=== PATIENT | female | born 1975 | race Caucasian/White ===

== ENCOUNTER 2016-06-03 18:07 | Emergency (ER) | payer OTHER ==
[~2016-06-03] VITALS: Ht 167.6 cm; Wt 72.7 kg
[~2016-06-03 18:07] MED LIST: EFAV1TAB PO; HYDR-4003 PO; OMEP20TA86 PO; TOPI-59 PO
[2016-06-03 18:10] VITALS: BP 129/80; PULSE 75; RESP 16; O2SAT 100
[2016-06-03 18:58] LABS: BASOPHILS % (AUTO) 0.2 % (0-3); EOSINOPHILS % (AUTO) 4.3 % (0-5); MONOCYTES % (AUTO) 8.3 % (4-12); Mean Corpuscular Hemoglobin 32.5 pg (27.0-35.0); Mean Corpuscular Volume 97.1 fL (81-100); NEUTROPHILS % (AUTO) 53.6 % (40-74); Platelet Count 241 bil/L (150-400)
[2016-06-03 19:14] LABS: Magnesium 2.2 mg/dL (1.6-2.6)
--- NOTE | 2016-06-03 19:56 | ED.REPORT ---
HPI-Abd Pain F Under 42 Date of Service Jun 03, 2016 ED Provider: Duncan Berumen DO Pt is a 41 y/o female w/ a hx of HIV presenting to the ED c/o RLQ abdominal pain onset 3 days ago. She c/o associated nausea. The patient has no history of appendectomy. Her CD4 count is "good". She has no history of AIDS defining illness. She was diagnosed 5 years ago. Nursing Notes Stated Complaint: RIGHT/LOWER ABD PAIN Chief Complaint: Female Abdominal Pain Nursing Notes Reviewed: Yes Allergies: Coded Allergies: Sulfa (Sulfonamide Antibiotics) (Verified Allergy, Unknown, 06/03/16) Scheduled Efavirenz/Emtricitab/Tenofovir (Atripla) 1 Each Tablet 1 TABLET PO DAILY Topiramate (Topiramate) 25 Mg Tablet 25 MG PO BID Scheduled PRN Hydrocodone-Acetaminophen 5-325 mg (Hydrocodone-Acetaminophen 5-325 mg) 1 Each Tablet 1 TABLET PO Q6H PRN PRN For Pain Omeprazole (Omeprazole) 20 Mg Tablet.dr 20 MG PO DAILY PRN PRN For Indigestion General Time Seen by MD: 19:09 Chief Complaint Abdominal pain Hx Obtained From: Patient Arrived By: Walk-in Sudden in Onset?: No Onset Occurred: 3 days ago Symptom Duration: Since onset Progression since Onset: Constant Location: : RLQ Quality: Painful Radiation: : Does not radiate Severity: Current: Moderate Severity: Maximum: Moderate Past Medical History Past Medical History HIV - from sexual partner TMJ disease Diverticulitis Ulcer UTI Cervical cancer in remission Past Surgical History Hysterectomy Cholecystectomy Left knee Smoking History Former Smoker Social History Alcohol Use: "Social" Ambulatory Status Independent Review of Systems Constitutional: Denies: Chills, Fever Respiratory: Denies: Non-productive cough, Shortness of breath Cardiovascular: Denies: Chest pain, Dyspnea on exertion GI: Reports: Abdominal pain, Nausea, Denies: Diarrhea, Vomiting Complete sys rev & neg: except as marked. Physical Exam Initial Vital Signs Vital Signs (First) Date Time Temp Pulse Resp B/P Pulse Ox O2 Delivery O2 Flow Rate FiO2 06/03/16 18:10 36.4 75 16 129/80 100 Room Air Initial VS: Reviewed Head / Eyes: Atraumatic, Normocephalic, PERRL ENT: Mucous membranes moist, Conjunctiva normal, No scleral icterus Neck: Supple, Full range of motion Extremities: Vascular intact, Neuro intact, No swelling, No tenderness Skin: Warm, Dry, No cyanosis Neurologic: Alert, Oriented, Nonfocal Psychiatric: Mood/affect normal, Behavior normal, Normal thought content General/Constitutional: Awake, Alert, No acute distress, Well appearing, Cooperative, Not toxic appearing Respiratory / Chest: Atraumatic, Breath sounds NL, Breath sounds = bilat, No respiratory distress, No rales, No rhonchi, No wheezing, No retractions, No stridor, No chest tenderness, No chest wall deformity, No crepitus Cardiovascular: Heart rate NL, Regular rhythm, Heart sounds NL, No gallop, No murmurs, No rubs, Cap refill not delayed, Peripheral circulation NL Abdomen: Atraumatic, Soft, No guarding, No rebound, No distention, No palpable mass Tenderness/Guarding/Rebound: Positive: Tender RLQ... (Moderate) Back: Full range of motion, Painless range of motion, No CVA tenderness Interpretation & Diagnostics Lab Results Interpretation Result Diagram: 06/03/164 06/03/164 Test 06/03/16 18:44 06/03/16 20:23 White Blood Count 6.5th/mm3 (3.8-10.1) Red Blood Count 4.16mil/mm3 (3.90-5.20) Hemoglobin 13.5g/dL (12.0-15.6) Hematocrit 40.4% (35.0-46.0) Mean Corpuscular Volume 97.1fL (81-100) Mean Corpuscular Hemoglobin 32.5pg (27.0-35.0) Mean Corpuscular Hemoglobin Concent 33.4% (32.0-37.0) Red Cell Distribution Width 12.7% (12.3-15.4) Platelet Count 241bil/L (150-400) Neutrophils (%) (Auto) 53.6% (40-74) Lymphocytes (%) (Auto) 33.4% (14-46) Monocytes (%) (Auto) 8.3% (4-12) Eosinophils (%) (Auto) 4.3% (0-5) Basophils (%) (Auto) 0.2% (0-3) Sodium Level 134mEq/L (134-144) Potassium Level 4.2mEq/L (3.5-5.2) Chloride Level 99mEq/L (97-108) Carbon Dioxide Level 22mmol/L (18-29) Blood Urea Nitrogen 11mg/dL (6-20) Creatinine 0.74mg/dL (0.57-1.00) Estimat Glomerular Filtration Rate 125mL/min (>59) Glucose Level 86mg/dL (60-99) Calcium Level 9.2mg/dL (8.5-10.1) Magnesium Level 2.2mg/dL (1.6-2.6) Total Bilirubin 0.3mg/dL (0.0-1.2) Aspartate Amino Transf (AST/SGOT) 18U/L (0-50) Alanine Aminotransferase (ALT/SGPT) 13U/L (0-32) Alkaline Phosphatase 59U/L (25-150) Total Protein 7.5g/dL (6.4-8.4) Albumin 4.4g/dL (3.4-5.0) Lipase 26U/L (13-60) Hold Kauffman Top Tube Received (Received) Urine Color Straw (YELLOW) Urine Appearance Clear (CLEAR,HAZY) Urine pH 6.0 (5.0-8.0) Urine Specific [place] 1.015 (1.003-1.035) Urine Protein Negativemg/dL (NEG,TRACE) Urine Glucose (UA) Negativemg/dL (NEGATIVE) Urine Ketones 15mg/dL (NEGATIVE) Urine Occult Blood Negative (NEGATIVE) Urine Nitrite Negative (NEGATIVE) Urine Bilirubin Negative (NEGATIVE) Urine Urobilinogen Normalmg/dL (NORMAL) Urine Leukocyte Esterase Negative (NEGATIVE) Urine RBC 0-2/hpf (0-2) Urine WBC 0-5/hpf (0-5) Urine Epithelial Cells Few/hpf (NONE-MOD) Urine Crystals None seen (NONE SEEN) Urine Bacteria Few/hpf (NONE-FEW) Urine Hyaline Casts None/lpf (NONE) Urine Granular Casts None seen (NONE SEEN) Urine Waxy Casts None seen (NONE SEEN) Urine Red Blood Cell Casts None seen (NONE SEEN) Urine White Blood Cell Casts None seen (NONE SEEN) Urine Mucus None seen (None Seen) Urine Trichomonas None seen (NONE SEEN) Urine Yeast None (NONE SEEN) Urinalysis Comment None Urine Culture Reflexed Not indicated Hold Urine Received (Received) CT Abd / Pelvis Interpretation Conclusion: Normal appendix. Possible constipation pattern. Transmitted to the ED at [address] Bonifacio Blake Study type: Abdominal CT IV contrast Interpretation / Wet Read by: Interpret - Radiologist Re-Eval/Medical Decision Med Decision/Clinical Course HIV and right lower quadrant abdominal pain CT scan felt to be indicated. CT scan is reassuring. Constipation found. Laboratory work reassuring. Symptoms adequate treated. Close outpatient follow-up recommended. Re-Evaluation/Progress : Time of Eval: 00:03 Re-Evaluation/Progress Note: Pt rechecked. Informed pt of plan for treatment. Pt understands and agrees with plan for treatment. F/U and RTER warnings given. All questions addressed. Counseled Regarding: Diagnosis, Lab results, Need for follow-up, When/why to return to ED Discharge & Departure Primary Impression: Constipation Constipation type: unspecified constipation type Qualified Code: K59.00 - Constipation, unspecified Additional Impression: Abdominal pain Abdominal location: right lower quadrant Qualified Code: R10.31 - Right lower quadrant pain Disposition: Home Discharge Condition All VS Reviewed: Yes Condition: Stable Patient Instructions: Acute Abdominal Pain (ED), Constipation (ED) Additional Instructions: The CT scan today showed that you are constipated without other abnormalities. All of your labs were completely normal. Increase fiber in your diet. Drink clear liquids until you go home and then drink the mag citrate as directed. Return to the emergency department for any new or worsening symptoms. Follow-up with your doctor or the residency clinic next week. Referrals: [facility] Res[facility] Scribe Attestation Portions of this note were transcribed by Chris Nuno. I, Dr. Berumen personally performed the history, physical exam and medical decision-making; I reviewed and confirmed the accuracy of the information in the transcribed note. Signed by [place], 06/03/16 - 2014 Duncan Berumen DO Jun 03, 2016 19:56 CHRIS NUNO Jun 03, 2016 20:04
[2016-06-03] MEDS ORDERED: Iohexol 300 mg/mL 30 mL Inj PO ONE (20:50)
[2016-06-03] MEDS ORDERED: HYDROmorphone 0.5 mg/0.5 mL iSecure Syringe IVPUSH PRN (20:50)
[2016-06-03] MEDS: Ondansetron 2 mg/mL 2 mL Inj IVPUSH PRN ×3 (20:58→23:10)
[2016-06-03 23:10] VITALS: BP 110/75; PULSE 79; RESP 16; O2SAT 100
[2016-06-03 23:52] LABS: APPEARANCE,URINE CLEAR (CLEAR,HAZY); COLOR,URINE STRAW (YELLOW); OCCULT BLOOD,URINE NEGATIVE (NEGATIVE); UROBILINOGEN,URINE NORMAL (NORMAL)
[2016-06-04 00:23] VITALS: BP 110/75; PULSE 79; RESP 16; O2SAT 100
--- NOTE | 2016-06-04 08:19 | DRSVH ---
PROCEDURE: CT ABDOMEN AND PELVIS WITH CONTRAST (PNL-7102) INDICATIONS: 41-year-old female with worsening right lower quadrant pain for 3 days. TECHNIQUE: After the administration of oral and intravenous contrast, 5 mm thick sections acquired from the diap hragms to the symphysis. 5 mm thick coronal and sagittal reformats were performed. For radiation do se reduction, the following was used: automated exposure control, adjustment of mA and/or kV accordi ng to patient size. COMPARISON: [facility], CT, ABD/PELVIS W/CON (PNL), 01/02/2013, 17:14. [facility], CT, ABD/PELVIS W/CON (PNL), 06/08/2012, 9:03. FINDINGS: Preliminary interpretation rendered by [employer] [facility]. Image quality: Excellent. ABDOMEN: Lung bases: Lung bases are clear. Heart size is normal. Solid organs: Liver and spleen are normal in size. 8 mm right hepatic lobe hypodense lesion is unch anged since 2012, presumably a small cyst. Gallbladder is surgically absent . Biliary system is non -dilated. Pancreas enhances normally. No adrenal nodules. Kidneys are normal in size and enhanceme nt, without hydronephrosis. Nonobstructing 2 mm right renal stone is present. Peritoneum and bowel: Stomach, small bowel, and colon loops are normal in caliber and wall thickness . The appendix is normal in caliber on coronal image 28. No free fluid or air. Nodes and vessels: No retroperitoneal or mesenteric adenopathy. Aorta and inferior vena cava are no rmal in caliber. Retro aortic left renal vein is incidentally noted. Miscellaneous: No ventral hernias. PELVIS: Genitourinary: Bladder wall thickness is normal. Patient is status post interval hysterectomy. Ova bernard are normal in size, with 2.0 left adnexal cyst and 1.8 cm right adnexal cyst, presumably functio nal given the patient's age. Miscellaneous: No inguinal hernias or adenopathy. Bones: No suspicious bony lesions. No vertebral body compression fractures. IMPRESSION: 1. No imaging explanation for right lower quadrant abdominal pain. The appendix appears normal. 2. 2 mm nonobstructing right renal stone. 3. 8 mm presumed cyst within the right hepatic lobe is unchanged since 2012, reassuring for benign e tiology. No significant discrepancy with preliminary [employer] report. Dictated by: lCifton Langston M.D. on 06/04/2016 at 8:09 Approved by: Clifton Langston M.D. on 06/04/2016 at 8:18
== END 2016-06-04 00:24 | disposition home or self-care (01) ==
LOC: SED 18:07
DX: K59.00 Constipation, unspecified (principal); R10.31 Right lower quadrant pain; Z90.49 Acquired absence of other specified parts of digestive tract; Z87.891 Personal history of nicotine dependence; Z88.2 Allergy status to sulfonamides
CPT/HCPCS: 74177; 80053; 81000; 81002; 81025; 83690; 83735; 85025; 87491; 87591; 96374; 96375; 96376; 99285; J1170; J2405; Q9967

== ENCOUNTER 2016-06-10 10:54 | Emergency (ER) | payer OTHER ==
[~2016-06-10] VITALS: Ht 167.6 cm; Wt 160.0 kg
--- NOTE | 2016-06-10 11:10 | ED.REPORT ---
HPI- Female Date of Service Jun 10, 2016 ED Provider: Perry Eng MD Pt is a 41 y/o female w/ a hx of HIV (good CD4 count), cervical CA in remission , s/p hysterectomy, presenting to the ED c/o RLQ abdominal pain with radiation to the flank and groin onset 1 week ago. She c/o associated nausea. Pt denies vomiting, fever, chills, flank pain, constipation, diarrhea, vaginal bleeding or discharge. The patient was seen here in the ED 1 week ago and told that she was constipated. The CT scan she had at that time was read by the night hoc radiologist as a constipation pattern but the official hospital radiologist read her scan as a nonobstructing 2 mm right renal stone. She was also called by the resident PCP (Polly Armenta) she saw in follow-up and told to come to the ED because her bladder was distended (although the official read notes no abnormality with the bladder). She was prescribed Toradol and Tramadol but was not prescribed Flomax. Her sister and father have a history of kidney stones. Nursing Notes Stated Complaint: POSS BLADDER DISTENDED Nursing Notes Reviewed: Yes Allergies: Coded Allergies: Sulfa (Sulfonamide Antibiotics) (Verified Allergy, Unknown, 06/03/16) Scheduled Efavirenz/Emtricitab/Tenofovir (Atripla) 1 Each Tablet 1 TABLET PO DAILY Tamsulosin (Flomax) 0.4 Mg Capsule 0.4 MG PO DAILY Topiramate (Topiramate) 25 Mg Tablet 25 MG PO BID Scheduled PRN Hydrocodone-Acetaminophen 5-325 mg (Hydrocodone-Acetaminophen 5-325 mg) 1 Each Tablet 1 TABLET PO Q6H PRN PRN For Pain Omeprazole (Omeprazole) 20 Mg Tablet.dr 20 MG PO DAILY PRN PRN For Indigestion General Time Seen by MD: 11:05 Chief Complaint Abdominal pain... (RLQ) Hx Obtained From: Patient Arrived By: Walk-in Sudden in Onset?: No Onset Occurred: 1 week ago Symptom Duration: Since onset Location: : RLQ Quality: Painful Radiation: Flank right Inguinal right Severity: Current: Moderate Severity: Maximum: Moderate Recent Healthcare: Recent doctor visit, Recent testing, Previous diagnosis, Prior workup Similar Sx Previous: No Past Medical History Past Medical History HIV - from sexual partner TMJ disease Diverticulitis Ulcer UTI Cervical cancer in remission Past Surgical History Hysterectomy Cholecystectomy Left knee Family History Sister and father with kidney stones Smoking History Former Smoker Social History Alcohol Use: "Social" Ambulatory Status Independent Review of Systems Constitutional: Denies: Chills, Fever GI: Reports: Abdominal pain, Nausea, Denies: Constipation, Diarrhea, Vomiting Female: Reports: Flank pain, Denies: Dysuria, Vaginal bleeding - abnl, Vaginal discharge Complete sys rev & neg: except as marked. Physical Exam Initial Vital Signs Vital Signs (First) Date Time Temp Pulse Resp B/P Pulse Ox O2 Delivery O2 Flow Rate FiO2 06/10/16 11:17 36.2 65 16 120/80 99 Room Air Initial VS: Reviewed, Vital signs normal Head / Eyes: Atraumatic, Normocephalic, PERRL ENT: Mucous membranes moist, Conjunctiva normal, No scleral icterus Neck: Supple, Full range of motion Respiratory: Breath sounds normal, Clear to auscultation, No respiratory distress Cardiovascular: Regular rate & rhythm, Heart sounds normal, Intact distal pulses Back: No CVA tenderness Extremities: Vascular intact, Neuro intact, No swelling, No tenderness Skin: Warm, Dry, No cyanosis Neurologic: Alert, Oriented, Nonfocal Psychiatric: Mood/affect normal, Behavior normal, Normal thought content Female Genitourinary: Exam deferred General/Constitutional: Awake, Alert, No acute distress, Well appearing, Cooperative, Not toxic appearing Abdomen: Atraumatic, Soft, No guarding, No rebound, No distention, No palpable mass Diffuse low abdominal tenderness Interpretation & Diagnostics Lab Results Interpretation Result Diagram: 06/10/16 1150 06/10/16 1150 Test 06/10/16 11:50 06/10/16 12:47 White Blood Count 5.1th/mm3 (3.8-10.1) Red Blood Count 3.91mil/mm3 (3.90-5.20) Hemoglobin 12.6g/dL (12.0-15.6) Hematocrit 38.0% (35.0-46.0) Mean Corpuscular Volume 97.2fL (81-100) Mean Corpuscular Hemoglobin 32.2pg (27.0-35.0) Mean Corpuscular Hemoglobin Concent 33.2% (32.0-37.0) Red Cell Distribution Width 12.3% (12.3-15.4) Platelet Count 256bil/L (150-400) Neutrophils (%) (Auto) 46.2% (40-74) Lymphocytes (%) (Auto) 39.7% (14-46) Monocytes (%) (Auto) 10.6% (4-12) Eosinophils (%) (Auto) 3.1% (0-5) Basophils (%) (Auto) 0.2% (0-3) Sodium Level 138mEq/L (134-144) Potassium Level 4.7mEq/L (3.5-5.2) Chloride Level 103mEq/L (97-108) Carbon Dioxide Level 22mmol/L (18-29) Blood Urea Nitrogen 16mg/dL (6-20) Creatinine 0.88mg/dL (0.57-1.00) Estimat Glomerular Filtration Rate 102mL/min (>59) Glucose Level 95mg/dL (60-99) Calcium Level 8.7mg/dL (8.5-10.1) Total Bilirubin 0.3mg/dL (0.0-1.2) Aspartate Amino Transf (AST/SGOT) 15U/L (0-50) Alanine Aminotransferase (ALT/SGPT) 11U/L (0-32) Alkaline Phosphatase 56U/L (25-150) Total Protein 6.5g/dL (6.4-8.4) Albumin 4.1g/dL (3.4-5.0) Lipase 28U/L (13-60) Hold Kauffman Top Tube Received (Received) Urine Color Yellow (YELLOW) Urine Appearance Hazy (CLEAR,HAZY) Urine pH 6.0 (5.0-8.0) Urine Specific [place] 1.015 (1.003-1.035) Urine Protein Negativemg/dL (NEG,TRACE) Urine Glucose (UA) Negativemg/dL (NEGATIVE) Urine Ketones Negativemg/dL (NEGATIVE) Urine Occult Blood Negative (NEGATIVE) Urine Nitrite Negative (NEGATIVE) Urine Bilirubin Negative (NEGATIVE) Urine Urobilinogen Normalmg/dL (NORMAL) Urine Leukocyte Esterase Negative (NEGATIVE) Urine RBC 0-2/hpf (0-2) Urine WBC 0-5/hpf (0-5) Urine Epithelial Cells Moderate/hpf (NONE-MOD) Urine Crystals None seen (NONE SEEN) Urine Bacteria Few/hpf (NONE-FEW) Urine Hyaline Casts None/lpf (NONE) Urine Granular Casts None seen (NONE SEEN) Urine Waxy Casts None seen (NONE SEEN) Urine Red Blood Cell Casts None seen (NONE SEEN) Urine White Blood Cell Casts None seen (NONE SEEN) Urine Mucus None seen (None Seen) Urine Trichomonas None seen (NONE SEEN) Urine Yeast None (NONE SEEN) Urinalysis Comment None Urine Culture Reflexed Not indicated CT Abd / Pelvis Interpretation IMPRESSION: 1. Bilateral nephrolithiasis. No urolithiasis or hydronephrosis. Cause of right flank pain is not seen. 2. Normal appendix is visualized. Cause of right lower quadrant pain is not seen. 3. Gallbladder and uterus surgically absent. Dictated by: Rory Luke M.D. on 06/10/2016 at 11:53 Approved by: Rory Luke M.D. on 06/10/2016 at 12:04 Study type: Abdominal CT no contrast Interpretation / Wet Read by: Interpret - Radiologist Re-Eval/Medical Decision Med Decision/Clinical Course 41-year-old female presenting with right lower quadrant pain and right flank pain 1 week. He reports it is worsening. She was here one week ago and was told she constipation. She was then told by her primary doctor she had a kidney stone. She was not started on Flomax. She comes in today with worsening pain. No other associated symptoms. Vital signs stable. Mild right upper quadrant tenderness. CT abdomen and pelvis shows no appendicitis. She does have bilateral nonobstructing kidney stones. No UTI. Labs are stable. Patient was treated for kidney stones with Flomax. Return precautions. Follow up Primary doctor monday. Re-Evaluation/Progress : Time of Eval: 12:48 Re-Evaluation/Progress Note: Pt rechecked. Informed pt of plan for treatment. Pt understands and agrees with plan for treatment. F/U instructions and RTER warnings given. All questions addressed. Counseled Regarding: Diagnosis, Lab results, Need for follow-up, When/why to return to ED Discharge & Departure Impression: Primary Impression: Nephrolithiasis Additional Impression: Abdominal pain Abdominal location: unspecified location Qualified Code: R10.9 - Unspecified abdominal pain Disposition: Home Discharge Condition All VS Reviewed: Yes Condition: Stable Patient Instructions: Renal Colic (ED) Additional Instructions: The CT scan today showed kidney stones in both kidneys. The appendix was normal. The labs were completely normal. Your pain will likely resolve once the stones pass in a few days. Take Flomax as directed to help pass the stones. Return to the emergency department for worsening pain, high fever, shaking chills, persistent vomiting, or for other concerning symptoms. Follow-up with urology next week to discuss your kidney stones. A referral has been given to you. Referrals: Keisha Betancourt MD [facility] Residency Clinic Scribe Attestation Portions of this note were transcribed by Chris Nuno. I, Dr. Eng personally performed the history, physical exam and medical decision-making; I reviewed and confirmed the accuracy of the information in the transcribed note. Signed by Chris Nuno and [place], 06/10/16 - 1199 Perry Eng MD Jun 10, 2016 11:10 CHRIS NUNO Jun 10, 2016 11:33
[2016-06-10 11:17] VITALS: BP 120/80; PULSE 65; RESP 16; O2SAT 99
[2016-06-10 12:01] LABS: BASOPHILS % (AUTO) 0.2 % (0-3); EOSINOPHILS % (AUTO) 3.1 % (0-5); MONOCYTES % (AUTO) 10.6 % (4-12); Mean Corpuscular Hemoglobin 32.2 pg (27.0-35.0); Mean Corpuscular Volume 97.2 fL (81-100); NEUTROPHILS % (AUTO) 46.2 % (40-74); Platelet Count 256 bil/L (150-400)
--- NOTE | 2016-06-10 12:05 | DRSVH ---
PROCEDURE: CT KUB (PNL-7475) INDICATIONS: RLQ pain h/o kidney stones TECHNIQUE: Noncontrast 5 mm thick sections acquired from the diaphragms to the symphysis. 5 mm thick coronal an d sagittal reformats were then performed. For radiation dose reduction, the following was used: aut omated exposure control, adjustment of mA and/or kV according to patient size. COMPARISON: CT abdomen and pelvis 06/03/2016, ultrasound abdomen 10/29/2015; FINDINGS: Image quality: Excellent. Lung bases: Lung bases are clear. Heart size is normal. Urinary system: Both kidneys are normal in size. There are 2 punctate stones in the upper pole of th e left kidney and 2 in the lower pole of the right kidney. No hydronephrosis or perinephric fat stran ding. Both ureters appear non-dilated throughout their expected courses. Bladder wall thickness is normal; no calcified bladder stones. Other solid organs: Liver and spleen are normal in size. Gallbladder is surgically absent. Pancrea s is normal in contours. No adrenal nodules. Peritoneum and bowel: Unenhanced bowel loops demonstrate normal wall thickness and caliber. Normal a ppendix, best seen on sagittal sequence. No free fluid or air. Nodes and vessels: No retroperitoneal or mesenteric adenopathy by size criteria. Aorta and inferior vena cava are normal in caliber. Abdominal wall: No ventral hernias. Pelvis: No free pelvic fluid. No inguinal hernias or adenopathy. Uterus is not seen and presumed to be surgically absent. Both ovaries are visualized and appear normal, containing follicular cysts scarlett suring 16 mm right and 18 mm left. Bones: No suspicious bony lesions. No vertebral body compression fractures. IMPRESSION: 1. Bilateral nephrolithiasis. No urolithiasis or hydronephrosis. Cause of right flank pain is not see n. 2. Normal appendix is visualized. Cause of right lower quadrant pain is not seen. 3. Gallbladder and uterus surgically absent. Dictated by: Rory Luke M.D. on 06/10/2016 at 11:53 Approved by: Rory Luke M.D. on 06/10/2016 at 12:04
[2016-06-10] MEDS ORDERED: TAMS0.4C98 PO (12:43)
[2016-06-10 13:39] LABS: APPEARANCE,URINE HAZY (CLEAR,HAZY); COLOR,URINE YELLOW (YELLOW); OCCULT BLOOD,URINE NEGATIVE (NEGATIVE); UROBILINOGEN,URINE NORMAL (NORMAL)
== END 2016-06-10 13:15 | disposition home or self-care (01) ==
LOC: SED 10:54
DX: N20.0 Calculus of kidney (principal); Z90.49 Acquired absence of other specified parts of digestive tract; Z87.891 Personal history of nicotine dependence; Z88.2 Allergy status to sulfonamides

== ENCOUNTER 2016-11-21 19:55 | Emergency (ER) | payer OTHER ==
[~2016-11-21] VITALS: Ht 167.6 cm; Wt 70.5 kg
[~2016-11-21 19:55] MED LIST changes: +TAMS0.4C98 PO
[2016-11-21 20:03] VITALS: BP 105/69; PULSE 72; RESP 18; O2SAT 100
--- NOTE | 2016-11-21 20:31 | ED.REPORT ---
HPI-General Illness Date of Service Nov 21, 2016 ED Provider: Trevor Davies MD Pt is a 41 y/o female with a history of diverticulitis and present nephrolithiasis who presents to the ED sent from for a repeat blood draw for hyperkalemia. Pt has a nephrolithiasis in her right kidney and describes her pain as a sharp, burning pain in her right flank that does not radiate, and is exacerbated by movement. Pt states that she has had right flank pain for a couple of weeks in which they saw nephrolithiasis in the kidneys. She had a blood draw at around 1700 today and her urine was clear, but had elevated potassium levels. She denies dysuria or fever. Nursing Notes Stated Complaint: REPEAT BLOOD DRAW Chief Complaint: General Complaint Nursing Notes Reviewed: Yes Allergies: Coded Allergies: Sulfa (Sulfonamide Antibiotics) (Verified Allergy, Unknown, 06/03/16) Scheduled Efavirenz/Emtricitab/Tenofovir (Atripla) 1 Each Tablet 1 TABLET PO DAILY Tamsulosin (Flomax) 0.4 Mg Capsule 0.4 MG PO DAILY Topiramate (Topiramate) 25 Mg Tablet 25 MG PO BID Scheduled PRN Hydrocodone-Acetaminophen 5-325 mg (Hydrocodone-Acetaminophen 5-325 mg) 1 Each Tablet 1 TABLET PO Q6H PRN PRN For Pain Hydrocodone-Acetaminophen 5-325 mg (Hydrocodone-Acetaminophen 5-325 mg) 1 Each Tablet 1 TABLET PO Q4H PRN PRN For Pain Omeprazole (Omeprazole) 20 Mg Tablet.dr 20 MG PO DAILY PRN PRN For Indigestion General Time Seen by MD: 20:30 Chief Complaint Other (Right CVAT ) Hx Obtained From: Patient Arrived By: Walk-in Sudden in Onset?: No Onset Occurred: More than a week ago... 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 Physical Exam Vital Signs Vital Signs Date Time Temp Pulse Resp B/P Pulse Ox O2 Delivery O2 Flow Rate FiO2 11/21/16 22:29 36.9 84 18 108/72 100 Room Air 11/21/16 21:03 36.6 11/21/16 20:03 72 18 105/69 100 Room Air Initial VS: Reviewed, Vital signs normal Head / Eyes: Atraumatic, Normocephalic Neck: Supple, Full range of motion Abdomen / GI: Soft, Non-tender Extremities: Vascular intact, Neuro intact, No swelling, No tenderness Skin: Warm, Dry, No cyanosis Neurologic: Alert, Oriented, Nonfocal Psychiatric: Mood/affect normal, Behavior normal, Normal thought content General/Constitutional: Awake, Alert Respiratory / Chest: Atraumatic, Breath sounds NL, Breath sounds = bilat, No respiratory distress Cardiovascular: Heart rate NL, Regular rhythm, Heart sounds NL Back: Atraumatic, Full range of motion Right CVAT Interpretation & Diagnostics Interpretation & Diagnostics: CT KUB from earlier today reviewed Lab Results Interpretation Result Diagram: 11/21/162039 Test 11/21/16 20:40 11/21/16 21:01 Potassium Level 4.6mEq/L (3.5-5.2) Urine Color Yellow (YELLOW) Urine Appearance Clear (CLEAR,HAZY) Urine pH 7.0 (5.0-8.0) Urine Specific Mccormick 1.015 (1.003-1.035) Urine Protein Negativemg/dL (NEG,TRACE) Urine Glucose (UA) Negativemg/dL (NEGATIVE) Urine Ketones Negativemg/dL (NEGATIVE) Urine Occult Blood Negative (NEGATIVE) Urine Nitrite Negative (NEGATIVE) Urine Bilirubin Negative (NEGATIVE) Urine Urobilinogen Normalmg/dL (NORMAL) Urine Leukocyte Esterase Negative (NEGATIVE) Urine RBC 0-2/hpf (0-2) Urine WBC 0-5/hpf (0-5) Urine Epithelial Cells Few/hpf (NONE-MOD) Urine Crystals None seen (NONE SEEN) Urine Bacteria Few/hpf (NONE-FEW) Urine Hyaline Casts None/lpf (NONE) Urine Granular Casts None seen (NONE SEEN) Urine Waxy Casts None seen (NONE SEEN) Urine Red Blood Cell Casts None seen (NONE SEEN) Urine White Blood Cell Casts None seen (NONE SEEN) Urine Mucus None seen (None Seen) Urine Trichomonas None seen (NONE SEEN) Urine Yeast None (NONE SEEN) Urinalysis Comment None Urine Culture Reflexed Not indicated Lab Results Interpretation: outpatient K 5.6, Repeat potassium is normal at 4.6 UA is negative Re-Eval/Medical Decision Med Decision/Clinical Course This is a 41-year-old female seen earlier urgent care for right flank pain concerns right kidney stone a urine infection, CT was negative, urinalysis was reportedly negative, red blood work and then received a phone call the potassium was elevated so she came here. She still having some mild right flank pain she's concerned about her kidney, but has no other additional complaints. Patient appears well has trace right CVA tenderness. Her CT KUB from earlier was reviewed and revealed a bilateral nephrolithiasis, but no urolithiasis. Urinalysis in the department was normal. And repeat potassium was drawn and was normal, suggesting that the elevated potassium from earlier today was secondary to hemolysis. Therefore not finding indication for additional testing. Reassurance provided. Pointed dangers are definitive cause of the right flank is not identified. There are no findings of symone stone, pyelonephritis, or other dangerous cause. Overdose and symptomatic management discussed. Routine and return precautions reviewed. Source of Hx: Old records Time of Eval: 22:01 Patient Status: Condition improved Re-Evaluation/Progress Note: Patient rechecked. Discussed plan for discharge. Patient understands and agrees with plan. F/U instructions and RTER warnings given. All questions addressed at this time. Differential Diagnosis: Negative: Acute coronary syndrome, Allergies, Bronchitis, acute, COPD exacerbation, Contusion, G-tube repair/replacement, Laceration, Neutropenia, Pneumonia Counseled Regarding: Diagnosis, Lab results, Need for follow-up, When/why to return to ED Discharge & Departure Primary Impression: Back pain Back pain location: low back pain Chronicity: acute Back pain laterality: right Sciatica presence: without sciatica Qualified Code: M54.5 - Low back pain Disposition: Home Discharge Condition All VS Reviewed: Yes Condition: Stable Additional Instructions: 1. Your sent to the emergency murmur with a concern your potassium was elevated on the initial lab tests drawn earlier today-however your repeat potassium was normal at 4.6. It is very easy for an abnormal potassium lab to occur, as cells can "hemolyzed" during the lab draw and cause a falsely elevated level. This appears to have occurred today. 2. A clear-cut cause of your flank pain and back pain was not identified. Your urine test today was normal no markers of infection or retained kidney stones. 3. Your CT scan revealed that you do have small kidney stones in each kidney on both sides, but there were no signs of kidney stones rash or causing any troubles-the generally cause pain when the stone moves out of the kidney and into the to call the ureter the Bladder. 4. Activities as tolerated. 5. Drink plenty of fluids 6. Take ibuprofen 400 mg 3 times a day as needed for soreness/pain 7. If needed for more severe pain, take hydrocodone/APAP 07/06/24 one tab up to 2- 3 times a day. Note: This medication contains narcotic and causes drowsiness, no driving for at least 4-6 hours after taking. 8. Follow up with your regular doctor as needed. Return if new or worsening symptoms occur. Referrals: Janet Gutierrez DO (PCP) [facility] Portions of this note were transcribed by Selam Headley. I, Dr. Davies, personally performed the history, physical exam and medical decision-making; I reviewed and confirmed the accuracy of the information in the transcribed note. Signed by: [place], 11/21/16. copies to: Janet Gutierrez Matthew F MD Nov 21, 2016 20:31 Selam Headley Nov 21, 2016 20:38
[2016-11-21] MEDS ORDERED: HYDROcodone-APAP 5-325 mg Tablet PO ONE (20:40)
[2016-11-21 21:52] LABS: APPEARANCE,URINE CLEAR (CLEAR,HAZY); COLOR,URINE YELLOW (YELLOW); OCCULT BLOOD,URINE NEGATIVE (NEGATIVE); UROBILINOGEN,URINE NORMAL (NORMAL)
[2016-11-21] MEDS ORDERED: HYDR-4003 PO (22:08)
[2016-11-21 22:29] VITALS: BP 108/72; PULSE 84; RESP 18; O2SAT 100
== END 2016-11-21 22:31 | disposition home or self-care (01) ==
LOC: SED 19:55
DX: M54.5 Low back pain (principal); Z85.41 Personal history of malignant neoplasm of cervix uteri; Z90.710 Acquired absence of both cervix and uterus; Z88.2 Allergy status to sulfonamides